=== PATIENT | female | born 1975 | race Caucasian/White ===

== ENCOUNTER 2019-07-06 11:24 | Emergency (ER) | payer MEDICAID ==
[2019-07-06 11:37] VITALS: BP 150/93
--- NOTE | 2019-07-06 12:21 | ED Physician Documentation ---
History of Present Illness - Stated complaint Stated Complaint: ARPAN REDNESS ON LEGS - Chief complaint Chief Complaint: Ext Problem - History obtained from History obtained from: Patient - History of Present Illness Timing: Last night (After working in the shed yesterday she developed redness of the left vasquez and right thigh last night. It reyna. There is no specific injury or allergen. No chills or fever. She is a type II diabetic with multiple allergies to antibiotics.) Review of Systems Constitutional: denies: Fever, Chills Cardiac: denies: Chest pain / pressure, Palpitations Respiratory: denies: Dyspnea, Cough PD PAST MEDICAL HISTORY - Past Medical History Past Medical History: Yes Respiratory: Asthma Endocrine/Autoimmune: Type 2 diabetes GRID CASTER: Ovarian cysts - Present Medications Home Medications: Ambulatory Orders Medication Instructions Recorded Confirmed Clindamycin HCl [Clindamycin 300MG 300 mg PO Q6H #28 capsule 07/06/19 CAP] - Allergies Allergies/Adverse Reactions: Allergies Allergy/AdvReac Type Severity Reaction Status Date / Time adhesive tape Allergy Unknown Verified 07/06/19 11:39 azithromycin Allergy Unknown Verified 07/06/19 11:39 cephalexin Allergy Unknown Verified 07/06/19 11:39 doxycycline Allergy Unknown Verified 07/06/19 11:39 ibuprofen [From Motrin] Allergy Nausea Verified 07/06/19 11:39 morphine Allergy Nausea Verified 07/06/19 11:39 Penicillins Allergy Unknown Verified 07/06/19 11:39 Sulfa (Sulfonamide Allergy Unknown Verified 07/06/19 11:39 Antibiotics) - Social History Does the pt smoke?: No Smoking Status: Never smoker PD ED PE NORMAL - Vitals Vital signs reviewed: Yes - General General: Alert and oriented X 3, No acute distress - HEENT HEENT: PERRL, EOMI - Neck Neck: Supple, no meningeal sign, No bony TTP - Extremities Extremities: Other (There is mild cellulitis to the right thigh, nontender, also mild cellulitis to the left vasquez. Good range of motion. No joint swelling. Pain is not out of proportion to examination.) - Neuro Neuro: Alert and oriented X 3, Normal speech Results - Vitals Vitals: Vital Signs - 24 hr 07/06/19 11:33 Temperature 36.3 C L Heart Rate 88 Respiratory 19 Rate Blood Pressure 150/93 H O2 Saturation 98 Oxygen O2 Source Room air PD MEDICAL DECISION MAKING - ED course ED course: This is a 44-year-old woman with cellulitis of mostly the left vasquez and less so the right thigh clindamycin noting multiple antibiotic allergies. Departure - Departure Disposition: 01 Home, Self Care Clinical Impression: Cellulitis Qualifiers: Site of cellulitis: extremity Site of cellulitis of extremity: lower extremity Laterality: unspecified laterality Qualified Code(s): L03.119 - Cellulitis of unspecified part of limb Condition: Good Record reviewed to determine appropriate education?: Yes Instructions: Cellulitis Dc Prescriptions: Clindamycin HCl [Clindamycin 300MG CAP] 300 mg PO Q6H #28 capsule Comments: Call your doctor to arrange a follow-up appointment, make the next available appointment. In the interim, return anytime if worse or if new symptoms develop. Your blood pressure was elevated today on check into the emergency department. This does not mean that you have hypertension, it is a common phenomenon to come to the emergency department and have elevated blood pressure. I recommend that you see your primary care physician within the week to have it rechecked when you are feeling better.
== END 2019-07-06 12:34 | disposition home or self-care (01) ==
LOC: ED 11:24
DX: L03.116 Cellulitis of left lower limb (principal); L03.115 Cellulitis of right lower limb; Z88.1 Allergy status to other antibiotic agents; Z88.0 Allergy status to penicillin; Z88.2 Allergy status to sulfonamides; E11.9 Type 2 diabetes mellitus without complications; R03.0 Elevated blood-pressure reading, without diagnosis of hypertension
CPT/HCPCS: 99282; 99283

== ENCOUNTER 2020-01-01 09:38 | Outpatient (CLI) | payer MEDICAID ==
--- NOTE | 2020-01-01 10:53 | SLEEP CARE CONSULTATION ---
Information from patient questionnaire entered by Maddie Nelson. I have reviewed and concur with the information entered by Maddie Nelson. This document represents the service I personally performed and the decisions made by me, Susana Rodriges MD, [facility]. History of Present Illness Reason for Visit: New patient, Previously diagnosed sleep apnea, sleep apnea on CPAP therapy, Other (need supplies for machine) Usual bedtime: 9pm - 12am Time it takes to fall asleep: 60 minutes Snores at night: Yes Observed to quit breathing while asleep: No Sleeps alone due to snoring: No Reasons for waking at night: reports: Pain, Bathroom Toss, Turn, or Twitch while sleeping: Yes Recalls having dreams: Yes Usually gets out of bed at: 7-7:30 am Feels refreshed in the morning: Yes Morning headache: No Sleepy or fatigued during the day: No Ever fallen asleep while driving: No Takes day naps: Yes Dreams during day naps: No Prior sleep studies: Yes Year and Where: [facility] Additional HPI information: I had the pleasure of seeing Ms. Rodrigues today regarding obstructive sleep apnea-hypopnea. As you know, she is a 44 year old lady who was diagnosed with the sleep-disordered breathing long time ago in [place]. She also had a home sleep apnea test (HSAT) done last year. The results are not available. She has a Respironics autoCPAP device set at 4 20 cmH2O. She uses every night and all night. The compliance data show usage in 180 out of the past 180 nights, averaging 8 hours a night. The residual AHI is 1.0; and average time in large leak per day is 1 minute a night. She wears a ResMed N-20 nasal mask. She got his supplies from [employer]. She finds the treatment tremendously beneficial. Since her insurance changed from [employer] to [employer], she has not gotten any supplies. - Parasomnia Symptoms Ever been unable to move upon waking from sleep: No Ever felt weak in the knees when startled or emotional: No Bothered by creepy, crawly, restless sensations in legs: Yes Problems with memory or concentration: No CPAP Compliance Data - Data Reviewed with Patient Average duration of nightly device use: 7.95 Compliance rate %: 100 (180 days) Current pressure setting (cmH2O): 4-20 Humidity settin Average residual AHI: 1.0 Average large leak: 1 min 51 sec Subjective Initial [place] Sleepiness Scale score: 2 Past Medical History Past Medical History: reports: Hypertension, Claustrophobia, Diabetes, Insulin resistance, Fibromyalgia (high cholesterol), Anxiety, Asthma, GERD Social History The patient's occupation is not employed. Patient is Single and lives in [place]. Have you smoked in the past 12 months: No Cigarettes per day (20/pack): 10 Quit date: 2009 Alcohol use: No Caffeine use: Yes Family History Family history of sleep disordered breathing: Yes Allergies and Home Medications Drug allergies reviewed: Yes Home medication list reviewed: Yes Allergy and home medication list: Current Medications: oxycodone, gabapentin, Flexeril, propranolol, insulin, inhalers Allergies: azithromycin, cephalexin, doxycycline, ibuprofen, morphine, penicillin sulfa drugs Review of Systems Weight gain over past 5 years: 20 Weight loss over past 5 years: 20 Cardiovascular: reports: high blood pressure Gastrointestinal: reports: heartburn Urinary: denies: incontinence, frequency, urgency, impotence, other Neurological: denies: headaches, seizure, head trauma, disorientation, speech dysfunction, gait or balance problems, fainting or unconsciousness, other Psychiatric: reports: anxiety, claustrophobia Ear/Nose/Throat: denies: nasal congestion, sinus problems, nose bleeds, dry mouth/throat, hoarseness, injury to nose, tonsillectomy, wisdom teeth removed, other Endocrine: denies: thyroid disease, history of goiter, sluggishness, too hot or cold, excessive thirst, increased appetite, increased urination, unexplained weakness, other Musculoskeletal: reports: neck pain, back pain, muscle pain or cramping, mobility problems Immunologic: denies: sneezing, rash, itching, allergies to food or environment, other Physical Exam Height: 5 ft 10 in Weight: 347 lb (Physical exam is deferred due to Covid-19 epidemic.) Body Mass Index: 49.8 BMI Classification: Morbidly Obese Impression and Plan IMPRESSION: 1. Obstructive Sleep Apnea-Hypopnea Syndrome, as previously diagnosed but the severity is unknown. The patient has had good treatment compliance. The current pressure setting appears effective and comfortable. The patient experiences improvement on the treatment. Narrow oropharynx and obesity are common predisposing factors for obstructive sleep apnea-hypopnea syndrome. Pathophysiology of sleep-disordered breathing was discussed. Because the CPAP is now older than the useful life of 5 years, I will order the patient a new one and make it an autoCPAP set between 4 and 12 cmH2O. Plan: 1. Prescription made for an autoCPAP, heated humidifier, and related supplies. 2. Avoid long distance driving or when feeling sleepy. 3. Avoid alcohol, sedative and muscle relaxant around bedtime. 4. Attempt to lose weight. 5. Return for follow up after one month on the new machine. I spent 100% of this visit face to face with the patient with greater than 50% of this was spent time counseling the patient and coordination of care.
== END 2020-01-01 09:39 | disposition home or self-care (01) ==
LOC: SC 09:38
PROVIDERS: ATTEND Internal Medicine Pulmonary Disease
DX: G47.33 Obstructive sleep apnea (adult) (pediatric) (principal); E66.01 Morbid (severe) obesity due to excess calories; Z68.42 Body mass index [BMI] 45.0-49.9, adult
CPT/HCPCS: 99203; 99212

== ENCOUNTER 2021-09-03 10:00 | Outpatient (CLI) | payer MEDICAID ==
--- NOTE | 2021-09-03 15:24 | XRAY Report ---
PROCEDURE: Lumbar Spine 2 View INDICATIONS: LUMBAGO WITH SCIATICA RIGHT SIDE TECHNIQUE: 2 views of the lumbar spine were acquired. COMPARISON: None. FINDINGS: Bones: 5 [id number] vertebrae are present. There is normal bony alignment. Moderate disc and f oraminal narrowing are noted at L5-S1. No vertebral body compression fractures. No suspicious bony lesions. Soft tissues: Overlying bowel gas pattern is normal. No suspicious soft tissue calcifications. IMPRESSION: Degenerative changes most notable at L5-S1. Reviewed by: Che Kapoor MD on 09/03/2021 3:23 PM PST Approved by: Che Kapoor MD on 09/03/2021 3:23 PM PST Station ID: [id number]
== END 2021-09-03 10:01 | disposition home or self-care (01) ==
LOC: DI 10:00
PROVIDERS: ATTEND Acupuncturist
DX: M51.37 Other intervertebral disc degeneration, lumbosacral region (principal); M48.07 Spinal stenosis, lumbosacral region